=== PATIENT | female | born 1995 | race African-American/Black ===

== ENCOUNTER 2018-03-10 16:18 | Emergency (ER) | payer OTHER ==
[~2018-03-10] VITALS: Ht 170.2 cm; Wt 47.0 kg
[~2018-03-10 16:18] MED LIST: LITH300T22 PO
[2018-03-10] MEDS ORDERED: ABILIFY (17:25)
[2018-03-10] MEDS ORDERED: LITHIUM (17:25)
[2018-03-10] MEDS ORDERED: PROZAC (17:25)
[2018-03-10] MEDS ORDERED: BIRTHCONTROL IMPLANT (17:25)
[2018-03-10] MEDS ORDERED: ONDANSETRON ODT 4 MG PO ONE (17:30)
[2018-03-10] MEDS ORDERED: SODIUM CHLORIDE FLUSH 10ML SYR IVF ONE (17:30)
[2018-03-10] MEDS ORDERED: ACETAMINOPHEN 500 MG TABLET PO ONE (17:30)
[2018-03-10] MEDS ORDERED: SODIUM CHLORIDE 0.9% 1,000ML IVBOLUS ONE (17:30)
[2018-03-10 18:02] LABS: MICROSCOPIC INDICATED
[2018-03-10 18:07] LABS: BASOPHILS % (AUTO) 0 % (0-1); EOSINOPHILS % (AUTO) 0 % (1-7); LYMPHOCYTES # (AUTO) 1.08 x10^3/uL (1-3.4); LYMPHOCYTES % (AUTO) 7 % (22-44); MD NO; MEAN CORPUSCULAR HEMOGLOBIN 30.4 pg (27.0-34.8); MEAN CORPUSCULAR VOLUME 92.3 fL (80-100); MEAN PLATELET VOLUME 9.2 fL (7.4-10.4); MONOCYTES # (AUTO) 1.34 x10^3/uL (0.2-0.8); MONOCYTES % (AUTO) 9 % (2-9); NEUTROPHILS # (AUTO) 12.74 x10^3/uL (1.8-6.8); NEUTROPHILS % (AUTO) 84 % (42-75); PLATELET COUNT 173 x10^3/uL (130-400); RED BLOOD COUNT 4.63 x10^6/uL (3.82-5.3); RED CELL DISTRIBUTION WIDTH 13.9 % (9.6-15.2)
[2018-03-10 18:08] LABS: ALBUMIN 3.8 g/dL (3.4-5.0); ANION GAP 12 mmol/L (5-15); CALCIUM 8.8 mg/dL (8.5-10.1); CHLORIDE 98 mmol/L (98-107)
[2018-03-10 18:10] LABS: CULTURE INDICATED? NO
[2018-03-10 18:15] LABS: ALANINE AMINOTRANSFERASE 74 U/L (12-78); ALKALINE PHOSPHATASE 86 U/L (45-117); BILIRUBIN,TOTAL 0.4 mg/dL (0.2-1.0); TOTAL PROTEIN 8.9 g/dL (6.4-8.2)
[2018-03-10] MEDS ORDERED: OMNIPAQUE 350 MG/ML, 100ML BOTTLE ONE (19:21)
[2018-03-10 21:36] VITALS: BP 90/58
== END 2018-03-10 21:41 | disposition home or self-care (01) ==
LOC: ED 21:40
DX: R10.31 Right lower quadrant pain (principal)
CPT/HCPCS: 36415; 74177; 76700; 76830; 80053; 81001; 84703; 85025; 96360; 99285; J7030; Q9967

== ENCOUNTER 2018-10-17 14:34 | Emergency (ER) | payer OTHER ==
[~2018-10-17] VITALS: Ht 170.2 cm; Wt 46.5 kg
[~2018-10-17 14:34] MED LIST changes: +ABILIFY; +BIRTHCONTROL IMPLANT; +LITHIUM; +PROZAC
--- NOTE | 2018-10-17 14:50 | NUR ---
PT HERE FOR SA AT [facility] BIB [facility] AND [facility]. PT REPORTS TAKING HER BOTTLE OF LITHIUM AND HER SISTERS MADE HER SPIT THEM OUT. PT REPORTS SHE IS FEELIGN VERY DOWN AND NOT GOOD ENOUGH. PT REPORTS SHE DID SOME COCAINE LAST NIGHT WITH SOME HARD LIQUOR. PT PLACED IN SAFE ROOM, PT PLACED ONLY IN GOWN. PT BELONGINGS SECURED AND PLACED IN ROOM. AWAITING FURTHER ORDERS. PERFORMANCE MANAGEMENT CONSULTANT ASKED FOR SITTER.
[2018-10-17 15:04] LABS: BASOPHILS # (AUTO) 0.03 x10^3/uL (0-0.1); BASOPHILS % (AUTO) 1 % (0-1); EOSINOPHILS # (AUTO) 0.04 x10^3/uL (0-0.4); EOSINOPHILS % (AUTO) 1 % (1-7); LYMPHOCYTES # (AUTO) 1.31 x10^3/uL (1-3.4); LYMPHOCYTES % (AUTO) 33 % (22-44); MD NO; MEAN CORPUSCULAR HEMOGLOBIN 30.3 pg (27.0-34.8); MEAN CORPUSCULAR HGB CONC 32.7 g/dL (32.4-35.8); MEAN CORPUSCULAR VOLUME 92.8 fL (80-100); MEAN PLATELET VOLUME 8.7 fL (7.4-10.4); MONOCYTES % (AUTO) 8 % (2-9); NEUTROPHILS # (AUTO) 2.31 x10^3/uL (1.8-6.8); NEUTROPHILS % (AUTO) 58 % (42-75); PLATELET COUNT 284 x10^3/uL (130-400); RED BLOOD COUNT 4.19 x10^6/uL (3.82-5.3); RED CELL DISTRIBUTION WIDTH 14.6 % (9.6-15.2)
[2018-10-17 15:11] LABS: ALANINE AMINOTRANSFERASE 22 U/L (12-78); ALBUMIN 4.4 g/dL (3.4-5.0); ANION GAP 6 mmol/L (5-15); CALCIUM 8.4 mg/dL (8.5-10.1); CHLORIDE 107 mmol/L (98-107); CREATININE 0.88 mg/dL (0.55-1.02)
[2018-10-17 15:13] LABS: ACETAMINOPHEN < 2 mcg/mL (10-30); ALKALINE PHOSPHATASE 104 U/L (45-117); BILIRUBIN,TOTAL 0.3 mg/dL (0.2-1.0); SALICYLATE LEVEL < 1.7 mg/dL (2.8-20.0); TOTAL PROTEIN 8.7 g/dL (6.4-8.2)
--- NOTE | 2018-10-17 15:20 | NUR ---
MD TO BEDSIDE AND EVALUATED.
--- NOTE | 2018-10-17 15:32 | NUR ---
1 BAG OF BELONGINGS TO [facility].
[2018-10-17 15:34] LABS: AMPHETAMINE SCREEN, URINE Negative (Negative); BARBITURATE SCREEN, URINE Negative (Negative); BENZODIAZEPINE SCREEN, URINE Negative (Negative); CANNABINOID SCREEN, URINE Negative (Negative); METHADONE SCREEN, URINE Negative (Negative); OPIATE SCREEN, URINE Negative (Negative)
[2018-10-17 15:35] LABS: COCAINE SCREEN, URINE Positive (Negative)
--- NOTE | 2018-10-17 16:45 | NUR ---
PT RESTING IN BED. CAP REFILL WDL, EQUAL AND UNLABORED RESPIRATIONS. PT HAS NO NEEDS. SITTER OUTSIDE ROOM FOR CONTINOUS MONITORING.
--- NOTE | 2018-10-17 17:19 | NUR ---
[facility] CONSULT INITIATED
[2018-10-17] MEDS ORDERED: LORazepam 1MG TABLET PO ONE (17:30)
[2018-10-17] MEDS ORDERED: BISACODYL 10 MG SUPP PR PRN (18:00)
[2018-10-17] MEDS ORDERED: POLYETHYLENE GLYCOL 17 GM PACKET PO PRN (18:00)
[2018-10-17] MEDS ORDERED: ONDANSETRON ODT 4 MG PO PRN (18:00)
[2018-10-17] MEDS ORDERED: ACETAMINOPHEN 325 MG TABLET PO PRN (18:00)
[2018-10-17] MEDS ORDERED: DOCUSATE 100 MG CAPSULE PO PRN (18:00)
[2018-10-17] MEDS ORDERED: IBUPROFEN 600 MG TABLET PO PRN (18:00)
--- NOTE | 2018-10-17 18:06 | NUR ---
PT RESTING IN BED. CAP REFILL WDL, EQUAL AND UNLABORED RESPIRATIONS. PT HAS NO NEEDS. SITTER OUTSIDE ROOM FOR CONTINOUS MONITORING.
--- NOTE | 2018-10-17 19:06 | NUR ---
ASSUME CARE OF PT AT THIS TIME. CELESTINA WITH [facility] IN ASSESSING AT THIS TIME. SITTER AT DOORWAY.
--- NOTE | 2018-10-17 19:12 | NUR ---
CALL FROM LAB, LITHIUM LEVEL 0.1 (BELOW THERAPEUTIC RANGE). ERP NOTIFIED OF RESULT.
--- NOTE | 2018-10-17 19:26 | NUR ---
THROUGHPUT: PACKET FAXED TO [facility]
[2018-10-17 19:30] VITALS: BP 101/68
[2018-10-17] MEDS ORDERED: LORazepam 1MG TABLET ONE (19:34)
--- NOTE | 2018-10-17 19:37 | NUR ---
PT ANXIOUS, C/O ERNST. ATIVAN GIVEN PER ERP ORDER. SITTER AT DOORWAY. AWAITING ADMISSION TO [facility].
--- NOTE | 2018-10-17 19:42 | NUR ---
THROUGHPUT: [facility] CONTACTED STATES WILL REVEIW PACKET AND CALL BACK IF ACCEPTING PT
--- NOTE | 2018-10-17 20:41 | NUR ---
REPORT TO LILO AT [facility]. ACCEPTING MD PERSON. THROUGHPUT RN NOTIFIED.
== END 2018-10-17 21:34 ==
LOC: ED 15:09 → INTOOBSV 16:59 → UNDOADMOB 16:59 → EDIP 16:59 → ED 21:34
DX: T56.892A Toxic effect of other metals, intentional self-harm, initial encounter (principal); Y92.89 Other specified places as the place of occurrence of the external cause; F31.9 Bipolar disorder, unspecified
CPT/HCPCS: 36415; 80053; 80178; 80307; 80329; 84703; 85025; 99285; G0480